=== PATIENT | male | born 1960 | race Caucasian/White ===

== ENCOUNTER 2019-02-08 13:46 | Inpatient (IN) ==
[2019-02-08] MEDS ORDERED: ASPIRIN PO ONE (13:58)
--- NOTE | 2019-02-08 14:19 | EKG Report ---
Test Performed on : 02/08/2019 2:01:47 PM Test Reason : chest pain Blood Pressure : / mmHG Vent. Rate : 111 BPM Atrial Rate : 111 BPM P-R Int : 132 ms QRS Dur : 090 ms QT Int : 320 ms P-R-T Axes : 032 019 048 degrees QTc Int : 435 ms Sinus tachycardia. Otherwise normal ECG When compared with ECG of 06-JAN-2018 21:19, No significant change was found Unconfirmed Result
[2019-02-08 14:20] LABS: BASO# 0.04 X1000 (0.0-0.2); BASO% 0.6 % (0.0-0.8); EOS# 0.19 X1000 (0.0-0.7); EOS% 2.7 % (0.0-10.0); HEMOGLOBIN 14.3 g/dL (14.0-18.0); IMM GRAN# 0.01 X1000 (0.0-0.04); IMM GRAN% 0.1 % (0.0-0.5); LYMPH# 2.07 X1000 (1.2-3.4); LYMPH% 29.5 % (20.5-51.1); MCH 29.1 PG (27-31); MCV 85.4 FL (81-99); MONO# 0.61 X1000 (0.11-0.59); MONO% 8.7 % (1.7-9.3); MPV 9.4 FL (7.4-10.4); NEUT% 58.4 % (42.2-75.2); PLT 234 X1000 (130-400); RBC 4.92 XMIL (4.7-6.1); RDW 13.5 % (11.5-14.5); WBC 7.02 X1000 (4.8-10.8)
--- NOTE | 2019-02-08 14:37 | Diag Imaging Result Doc PS360 ---
EXAM: CHEST-2 VIEWS 02/08/2019 HISTORY: chest pain TECHNIQUE: PA and lateral chest COMMENT: There is a granuloma in the lingula which has not changed since 07/18/2017. There is no evidence of acute cardiac or pulmonary disease. Compared to the previous study there has been no significant change otherwise. IMPRESSION: No acute disease. Electronically signed by Fan Jj 02/08/2019 2:35 PM
[2019-02-08 14:48] LABS: INR 0.85; PROTIME 12.1 Seconds (11.0-16.0)
[2019-02-08 14:50] LABS: AGAP 12; ALBUMIN 4.3 g/dL (3.5-5.0); ALKALINE PHOSPHATASE 120 U/L (32-122); BUN 17 mg/dL (8-22); CALCIUM 8.9 mg/dL (8.8-10.2); CHLORIDE 107 mmol/L (98-107); CK PROFILE 163 U/L (24-204); COSMO 286; CREATININE 0.9 mg/dL (0.7-1.2); ESTIMATED GFR > 60; GLUCOSE 122 mg/dL (70-104); GOT 27 U/L (10-34); GPT 46 U/L (10-44); POTASSIUM 4.1 mmol/L (3.5-5.1); SODIUM 142 mmol/L (136-145); TCO2 23 mmol/L (25-35); TOTAL BILIRUBIN < 0.15 mg/dL (0.20-1.00); TOTAL PROTEIN 6.6 g/dL (6.3-8.3)
[2019-02-08] MEDS ORDERED: NS 1,000 ML IV ONE (15:38)
[2019-02-08] MEDS ORDERED: NITROGLYCERIN SL ONE (15:38)
[2019-02-08] MEDS ORDERED: DEMEROL IV ONE (15:49)
[2019-02-08] MEDS ORDERED: ZOFRAN IV ONE (15:49)
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
[2019-02-08] MEDS ORDERED: NITROGLYCERIN SL PRN (17:24)
[2019-02-08] MEDS ORDERED: TYLENOL PO PRN (17:24)
[2019-02-08] MEDS ORDERED: ZOFRAN IV PRN (17:24)
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
--- NOTE | 2019-02-08 20:01 | HISTORY AND PHYSICAL ---
ADDENDUM: Patient seen and examined by me. Full note dictated and discussed with nurse practitioner. The patient is an obese male who continues to smoke. He presented to the hospital with chest pain and left arm pain. He also was noted to have an infected cystic lesion in his groin region. We are going to admit him to the hospital, rule out NH, place on antibiotics and will follow. cc: Bobo Weir MD
[2019-02-08] MEDS: KEFLEX PO SCH (21:22)
[2019-02-09] MEDS: KEFLEX PO SCH ×4 (03:30→19:54)
[2019-02-09 05:44] LABS: HEMATOCRIT 42.3 % (42.0-52.0); HEMOGLOBIN 13.9 g/dL (14.0-18.0); MCH 28.3 PG (27-31); MCHC 32.9 g/dL (33-37); MPV 9.6 FL (7.4-10.4); RBC 4.92 XMIL (4.7-6.1); RDW 13.7 % (11.5-14.5); WBC 7.13 X1000 (4.8-10.8)
[2019-02-09 06:14] LABS: AGAP 10; ALKALINE PHOSPHATASE 105 U/L (32-122); BUN 15 mg/dL (8-22); CALCIUM 8.5 mg/dL (8.8-10.2); CHLORIDE 104 mmol/L (98-107); CHOLESTEROL 181 mg/dL (0-200); COSMO 278; CREATININE 0.7 mg/dL (0.7-1.2); ESTIMATED GFR > 60; GLUCOSE 99 mg/dL (70-104); GOT 27 U/L (10-34); GPT 43 U/L (10-44); HDL 35 mg/dL (35-55); LDL 87 mg/dL; SODIUM 139 mmol/L (136-145); TCO2 25 mmol/L (25-35); TOTAL BILIRUBIN < 0.15 mg/dL (0.20-1.00); TOTAL PROTEIN 6.7 g/dL (6.3-8.3); TRIGLYCERIDES 294 mg/dL (39-160); VLDL 59 mg/dL
[2019-02-09] MEDS: PRILOSEC PO SCH ×2 (07:47→15:56)
[2019-02-09] MEDS: NICODERM PATCH TD SCH (08:14)
[2019-02-09] MEDS: ASPIRIN PO SCH (08:17)
--- NOTE | 2019-02-09 08:30 | EKG Report ---
Test Performed on : 02/09/2019 08:30:29 AM Test Reason : chest pain Blood Pressure : / mmHG Vent. Rate : 084 BPM Atrial Rate : 084 BPM P-R Int : 136 ms QRS Dur : 092 ms QT Int : 368 ms P-R-T Axes : 031 002 024 degrees QTc Int : 434 ms Normal sinus rhythm. Normal ECG When compared with ECG of 08-FEB-2019 14:01, (Unconfirmed) No significant change was found Confirmed by Mitul Carvajal MD ([id number]) on 02/22/2019 3:27:00 PM
[2019-02-09] MEDS ORDERED: VENTOLIN HFA INH PRN (13:12)
[2019-02-09] MEDS: DILANTIN PO SCH ×2 (13:30→21:28)
[2019-02-09] MEDS: PERCOCET-10 PO SCH ×2 (13:30→21:28)
[2019-02-09] MEDS: NEURONTIN PO SCH ×2 (13:30→21:28)
--- NOTE | 2019-02-09 14:45 | ECHO REPORT ---
ORDER DATE: 02/08/2019 ECHOCARDIOGRAPHIC MEASUREMENTS: 1. Septal thickness 1.0. 2. Left ventricular internal diameter in diastole 5.2. 3. Posterior wall thickness 1.1. 4. Left ventricular internal diameter in systole 3.8. 5. Left atrium 2.2. 6. Aortic root 3.2. SUMMARY: 1. Technically difficult study due to limited acoustic window quality. Intravenous echo contrast agent Optison was utilized to enhance endocardial definition. 2. Aortic valve is without evidence of structural abnormality and opens adequately on 2- dimensional images. Peak gradient across the aortic valve is less than 10 mmHg. Mitral and tricuspid valves are without evidence of structural abnormality while pulmonic valve was not well demonstrated. There is trace tricuspid regurgitation. Aortic root is normal in size. 3. Normal left ventricular dimension is suggested. Estimated left ventricular ejection fraction appears to be at least 60%. No regional wall motion abnormality is evident. Left atrium, right atrium, right ventricle are normal in size with grossly preserved right ventricular systolic function. 4. No pericardial effusion. 5. Appearance of inferior vena cava suggests normal central venous pressure. CONCLUSIONS: 1. Technically difficult study. 2. No significant valvular abnormality evident. 3. Normal left ventricular systolic function without wall motion abnormality evident. cc: MD Bobo Spivey MD
[2019-02-09] MEDS: DESYREL PO SCH (21:28)
[2019-02-09] MEDS: SEROQUEL PO SCH (21:28)
[2019-02-09] MEDS: LIPITOR PO SCH (21:28)
[2019-02-09] MEDS: PROTONIX PO SCH (21:29)
[2019-02-09] MEDS: KEPPRA PO SCH (21:29)
[2019-02-10] MEDS: KEFLEX PO SCH ×4 (01:26→19:55)
[2019-02-10] MEDS: NEURONTIN PO SCH ×3 (05:06→21:18)
[2019-02-10] MEDS: DILANTIN PO SCH ×3 (05:07→21:18)
[2019-02-10] MEDS: PERCOCET-10 PO SCH ×3 (05:07→21:18)
[2019-02-10] MEDS: PRILOSEC PO SCH (06:23)
[2019-02-10] MEDS: KEPPRA PO SCH ×2 (09:38→21:19)
[2019-02-10] MEDS: PROTONIX PO SCH ×2 (09:39→21:18)
[2019-02-10] MEDS: COZAAR PO SCH (09:39)
[2019-02-10] MEDS: LASIX PO SCH (09:39)
[2019-02-10] MEDS: ASPIRIN PO SCH (09:39)
[2019-02-10] MEDS: NICODERM PATCH TD SCH (09:39)
--- NOTE | 2019-02-10 12:29 | PROGRESS NOTE ---
DATE: 02/10/2019 SUBJECTIVE: Patient complains of having pain in his left groin area because of the infection, but denies having any other complaints. He is alert and oriented x3 and does not appear to be in any acute distress otherwise. OBJECTIVE: Vital Signs: Temperature 97.9 degrees, pulse 81 per minute, respiratory rate 20 per minute, blood pressure 147/82, pulse oximetry is 98% on room air. General: Patient is alert and oriented x3. He does not appear to be in any acute distress. Cardiovascular System: First and second heart sounds are audible without any murmurs or gallops. Respiratory System: No respiratory distress noted. Bilateral lung air entry is moderately decreased, but there are no rales or rhonchi present on auscultation. Gastrointestinal System: Patient is morbidly obese. Abdomen is soft and nontender. Normal bowel sounds are present. Musculoskeletal System: No rib deformities are present. Integumentary: Right inner upper thigh is noted to have about 3 cm subcutaneous tenderness and skin induration associated. There is a small abscess palpable in that area as well. DIAGNOSTIC DATA: CBC done yesterday was found to be within normal limits. Chemistry was also nondiagnostic and serial cardiac enzymes were negative for any acute myocardial ischemic event. IMPRESSION: 1. Abscess, right upper inner thigh area. 2. Hypertension. 3. Dyslipidemia. 4. History of seizure disorder that is currently stable. 5. Patient presented with chest pain during this hospital admission, but that has been resolved, and serial cardiac enzymes have been negative. The patient is asymptomatic at this time. PLAN: We will obtain surgical consultation for care of abscess in his right upper inner thigh area. Otherwise, overall his condition is stable, and we are going to continue with the current medications. He has been getting cephalexin 500 mg 4 times a day for his abscess/cellulitis, which will be continued. He can be probably discharged home in the next 1 to 2 days if remains stable. cc: Debbie Law MD
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
[2019-02-10] MEDS: DESYREL PO SCH (21:18)
[2019-02-10] MEDS: SEROQUEL PO SCH (21:18)
[2019-02-10] MEDS: LIPITOR PO SCH (21:18)
[2019-02-11] MEDS: KEFLEX PO SCH ×2 (01:12→08:04)
[2019-02-11] MEDS: PERCOCET-10 PO SCH (05:13)
[2019-02-11] MEDS: NEURONTIN PO SCH (05:13)
[2019-02-11] MEDS: DILANTIN PO SCH (05:13)
[2019-02-11] MEDS: PRILOSEC PO SCH (06:17)
[2019-02-11 07:48] VITALS: BP 134/78
[2019-02-11] MEDS: NICODERM PATCH TD SCH (08:04)
[2019-02-11] MEDS: ASPIRIN PO SCH (08:04)
[2019-02-11] MEDS: LASIX PO SCH (08:04)
[2019-02-11] MEDS: KEPPRA PO SCH (08:04)
[2019-02-11] MEDS: PROTONIX PO SCH (08:04)
[2019-02-11] MEDS: COZAAR PO SCH (08:04)
[2019-02-11] MEDS ORDERED: SEPTRA DS PO SCH (09:30)
--- NOTE | 2019-02-11 15:50 | DISCHARGE SUMMARY ---
ADMISSION DATE: 02/08/2019 DISCHARGE DATE: 02/11/2019 DISCHARGE DIAGNOSIS: 1. Chest pain that is of noncardiac etiology. 2. History of mild coronary artery disease. 3. Abscess right upper thigh that has improved. 4. Hypertension. 5. Dyslipidemia. 6. Seizure disorder. HOSPITAL COURSE: This is a 58-year-old gentleman who came into the hospital with chest pain and sore on his right groin and right upper inner thigh area. He had cardiac catheterization as well as Lexiscan stress studies done in the past which were found to be normal. He had a cardiac catheterization done in August 2014 that also showed normal coronary anatomy. He therefore does not have any cardiac etiology chest pain and that has also resolved. He does not have any chest pains anymore and he was having right upper inner thigh area small abscess that was drained yesterday by Dr. Tiwari and recommended him to take Bactrim DS for a week. His abscess has resolved and his other medical conditions including hypertension and seizure disorder have been stable. Since his condition has improved, he is going to be discharged home today. DISCHARGE MEDICATIONS: 1. Bactrim DS orally twice daily for 1 week. 2. Albuterol inhaler 2 puffs q.4 hours as needed for wheezing and shortness of breath. 3. Aspirin 81 mg orally once daily. 4. Atorvastatin 40 mg orally once daily at bedtime. 5. Furosemide 20 mg orally once daily. 6. Gabapentin 800 mg orally 3 times a day. 7. Keppra 750 mg orally twice daily. 8. Losartan 50 mg orally once daily. 9. Percocet 10 mg 3 times a day as directed. 10. Protonix 40 mg orally twice daily. 11. Dilantin 200 mg orally 3 times a day 12. Trazodone 50 mg orally once daily at bedtime. FOLLOWUP: He will follow with his PCP in approximately 1 week. CONDITION: Stable. DISPOSITION: Home. cc: Debbie Law MD
== END 2019-02-11 12:30 | disposition home or self-care (01) | DRG 313 ==
LOC: P.ED 13:46 → SUATTDRO 18:10 → P.MEDSURG 18:10
PROVIDERS: ATTEND Internal Medicine